=== PATIENT | female | born 1975 | race Caucasian/White ===

== ENCOUNTER 2019-04-22 18:09 | Emergency (ER) | payer BC, OTHER ==
[2019-04-22 18:19] VITALS: BP 132/72; PULSE 83; TEMP 97.4; BMI 21.7
[2019-04-22] MEDS ORDERED: PANTOPRAZOLE SODIUM 40 MG VIAL IVPUSH ONE (18:52)
[2019-04-22] MEDS ORDERED: FAMOTIDINE 20 MG/50 ML IVPB 20 MG/50 ML MG IVPB ONE ×2 (18:52→20:00)
--- NOTE | 2019-04-22 18:52 | PDOC ---
History of Present Illness - General Chief Complaint: Chest Pain Stated Complaint: CHEST PAIN, back pain Time Seen by Provider: 04/22/19 18:41 - History of Present Illness Initial Comments: 04/22/19 18:49 CHIEF COMPLAINT: chest pain HISTORY OF PRESENT ILLNESS: 43-year-old female with no past medical history presents to ED with chest pain. Patient describes the pain as a pinching that began a week ago. She states the discomfort began to worsen approximately 1 hour ago. Patient also notes that the pain worsens particularly at nighttime when lying down. She reports taking Tylenol with some relief but came in today due to worsening of her symptoms. Patient denies any recent travel, recent surgery, or use of any type of hormones. Patient denies any shortness of breath , swelling to legs, or palpitations. No recent travel or sick contacts. PAST MEDICAL HISTORY: Denies past medical history FAMILY HISTORY: father -stroke "at old age", grandfather - heart attack "in his 80s" SOCIAL HISTORY: Denies tobacco, alcohol, illicit drug use. SURGICAL HISTORY: Denies ALLERGIES: No known drug allergies REVIEW OF SYSTEMS General/Constitutional: Denies fever or chills. Denies weakness, weight change. HEENT: Denies change in vision. Denies ear pain or discharge. Denies sore throat. Cardiovascular: "Pinching "chest discomfort to left chest x1 week. Denies shortness of breath. Respiratory: Denies cough, wheezing, or hemoptysis. Gastrointestinal: Denies nausea, vomiting, diarrhea or constipation. Denies rectal bleeding. Genitourinary: Denies dysuria, frequency, or change in urination. Musculoskeletal: Denies joint or muscle swelling or pain. Denies neck or back pain. Skin and breasts: Denies rash or easy bruising. Neurologic: Denies headache, vertigo, loss of consciousness, or loss of sensation. Psychiatric: Denies depression or anxiety. PHYSICAL EXAM General Appearance: Well-appearing, appropriately dressed. No apparent distress. HEENT: EOMI, PERRLA, normal ENT inspection, normal voice, TMs normal, pharynx normal. No conjunctival pallor. No photophobia, scleral icterus. Neck: Supple. Trachea midline. No tenderness, rigidity, carotid bruit, stridor , lymphadenopathy, or thyromegaly. Respiratory/Chest: Lungs CTAB. No shortness of breath, chest tenderness, respiratory distress, accessory muscle use. No crackles, rales, rhonchi, stridor , wheezing, dullness Cardiovascular: RRR. S1, S2. No JVD, murmur, bradycardia, tachycardia. Vascular Pulses: Dorsalis-Pedis (R): 2+, Dorsalis-Pedis (L): 2+ Gastrointestinal/Abdominal: Normal bowel sounds. Abdomen soft, non-distended. No tenderness or rebound tenderness. No organomegaly, pulsatile mass, guarding , hernia, hepatomegaly, splenomegaly. Lymphatic: No adenopathy, tenderness. Musculoskeletal/Extremities: Normal inspection. FROM of all extremities, normal capillary refill. Pelvis Stable. No CVA tenderness. No tenderness to extremities, pedal edema, swelling, erythema or deformity. Integumentary: Appropriate color, dry, warm. No cyanosis, erythema, jaundice or rash Neurologic: purse framer II-XII intact. Fully oriented, alert. Appropriate mood/affect. Motor strength 5/5. No appreciable EOM palsy, facial droop or sensory deficit. 04/22/19 20:48 Past History - Past Medical History Allergies/Adverse Reactions: Allergies Allergy/AdvReac Type Severity Reaction Status Date / Time No Known Allergies Allergy Verified 04/22/19 18:20 Home Medications: Ambulatory Orders Famotidine [Pepcid] 20 mg PO DAILY #20 tablet 04/22/19 Anemia: No Asthma: No Cancer: No Cardiac Disorders: No CVA: No COPD: No CHF: No Dementia: No Diabetes: No GI Disorders: Yes (REFLUX) Disorders: No HTN: No Hypercholesterolemia: No Liver Disease: No Seizures: No Thyroid Disease: No - Surgical History Cardiac Surgery: No Cholecystectomy: No Lung Surgery: No Neurologic Surgery: No Orthopedic Surgery: No - Psycho Social/Smoking Cessation Hx Smoking History: Never smoked Information on smoking cessation initiated: No Hx Alcohol Use: No Drug/Substance Use Hx: No Substance Use Type: None Hx Substance Use Treatment: No Cardiac Specific PMH - Complaint Specific PMHX Pacemaker: No *Physical Exam - Vital Signs Last Vital Signs Temp Pulse Resp BP Pulse Ox 97.4 F L 83 17 132/72 98 04/22/19 18:17 04/22/19 18:17 04/22/19 18:17 04/22/19 18:17 04/22/19 18:17 ED Treatment Course - LABORATORY CBC & Chemistry Diagram: 04/22/19 20:00 04/22/19 20:00 - ADDITIONAL ORDERS Additional order review: 04/22/19 20:00 RBC 3.94 MCV 97.6 H MCHC 34.9 RDW 12.7 MPV 8.1 Neutrophils % 49.9 D Lymphocytes % 37.6 D Monocytes % 8.4 Eosinophils % 3.4 D Basophils % 0.7 - Medications Given in the ED: ED Medications Discontinued Medications Generic Name Dose Route Start Last Admin Trade Name Orly PRN Reason Stop Dose Admin Famotidine/Sodium Chloride 20 mg in 50 mls @ 100 mls/hr 04/22/19 18:52 20:09 Pepcid 20 Mg Premixed Ivpb - IVPB 04/22/19 19:21 100 mls/hr ONCE ONE Administration Pantoprazole Sodium 40 mg 04/22/19 18:52 04/22/19 20:09 Protonix Iv IVPUSH 04/22/19 18:53 40 mg ONCE ONE Administration Medical Decision Making - Medical Decision Making 04/22/19 20:41 43-year-old female with no past medical history presents to ED with chest pain. Exam grossly unremarkable. -labs -ekg -pepcid/protonix EKG - NSR. Patient reassessed after administration of meds. Patient states her symptoms have completely resolved and she is ready to go home at this time. Advised patient to take medication as prescribed and follow up with PCP within the next week. Advised patient of signs and symptoms for return to ED. Patient verbalized understanding and agrees to plan. Discharge - Discharge Information Problems reviewed: Yes Clinical Impression/Diagnosis: GERD (gastroesophageal reflux disease) Qualifiers: Esophagitis presence: esophagitis presence not specified Qualified Code(s): K21.9 - Gastro-esophageal reflux disease without esophagitis Condition: Stable Disposition: HOME - Admission No - Additional Discharge Information Prescriptions: Famotidine [Pepcid] 20 mg PO DAILY #20 tablet - Follow up/Referral Referrals: Chelsea Benton MD [Staff Physician] - - Patient Discharge Instructions Patient Printed Discharge Instructions: DI for Gastroesophageal Reflux Disease (GERD), GERD Diet Additional Instructions: Please take medications as prescribed. Follow-up with your primary care doctor within the next week. If you develop any new or worsening symptoms, please return to the ER. - Post Discharge Activity
--- NOTE | 2019-04-22 19:21 | PDOC ---
*Physical Exam - Vital Signs Last Vital Signs Temp Pulse Resp BP Pulse Ox 97.4 F L 83 17 132/72 98 04/22/19 18:17 04/22/19 18:17 04/22/19 18:17 04/22/19 18:17 04/22/19 18:17 ED Treatment Course - LABORATORY CBC & Chemistry Diagram: 04/22/19 20:00 04/22/19 20:00 Medical Decision Making - Medical Decision Making 04/22/19 19:20 Patient seen by the advanced practice provider under my direct supervision. Ancillary testing reviewed as necessary. I agree with plan as outlined by the advanced practice provider. Discharge - Discharge Information Problems reviewed: Yes Clinical Impression/Diagnosis: GERD (gastroesophageal reflux disease) Qualifiers: Esophagitis presence: esophagitis presence not specified Qualified Code(s): K21.9 - Gastro-esophageal reflux disease without esophagitis Condition: Stable Disposition: HOME - Additional Discharge Information Prescriptions: Famotidine [Pepcid] 20 mg PO DAILY #20 tablet - Follow up/Referral Referrals: Chelsea Benotn MD [Staff Physician] - - Patient Discharge Instructions Patient Printed Discharge Instructions: DI for Gastroesophageal Reflux Disease (GERD), GERD Diet Additional Instructions: Please take medications as prescribed. Follow-up with your primary care doctor within the next week. If you develop any new or worsening symptoms, please return to the ER. - Post Discharge Activity
[2019-04-22] MEDS ORDERED: PANTOPRAZOLE SODIUM 40 MG VIAL ONE (19:59)
[2019-04-22 20:09] LABS: BASO % 0.7 % (0-2.0); EOS % 3.4 % (0-4.5); HEMATOCRIT 38.5 % (32.4-45.2); HEMOGLOBIN 13.4 GM/dL (10.7-15.3); LYMPH % 37.6 % (8-40); MCHC 34.9 g/dl (32.0-36.0); MEAN CELL VOLUME 97.6 fl (80-96); MEAN PLT VOLUME 8.1 fl (7.5-11.1); MONO % 8.4 % (3.8-10.2); NEUT % 49.9 % (42.8-82.8); PLATELET COUNT 229 K/MM3 (134-434); RBC 3.94 M/mm3 (3.60-5.2); RDW 12.7 % (11.6-15.6); WHITE BLOOD COUNT 4.4 K/mm3 (4.0-10.0)
[2019-04-22 20:45] LABS: ALBUMIN 3.9 g/dl (3.4-5.0); ALK PHOS 63 U/L (45-117); ANION GAP 5 MMOL/L (8-16); BILIRUBIN,TOTAL 0.2 mg/dL (0.2-1); BLOOD UREA NITROGEN 10.3 mg/dL (7-18); CALCIUM 8.6 mg/dL (8.5-10.1); CHLORIDE 108 mmol/L (98-107); CO2 28 mmol/L (21-32); CREATININE 0.6 mg/dL (0.55-1.3); GLUCOSE,RANDOM 101 mg/dL (74-106); SGOT/AST 19 U/L (15-37); SGPT/ALT 26 U/L (13-61); SODIUM 141 mmol/L (136-145); TOT PROT 7.3 g/dl (6.4-8.2)
--- NOTE | 2019-04-23 12:53 | EKG ---
Test Reason : Blood Pressure : / mmHG Vent. Rate : 083 BPM Atrial Rate : 083 BPM P-R Int : 136 ms QRS Dur : 088 ms QT Int : 360 ms P-R-T Axes : 068 072 059 degrees QTc Int : 423 ms NORMAL SINUS RHYTHM NORMAL ECG NO PREVIOUS ECGS AVAILABLE Confirmed by ZAFAR HULL, ABEL ([id number]) on 04/23/2019 12:53:19 PM Referred By: Confirmed By:ABEL STEPHEN MD
== END 2019-04-22 21:17 | disposition home or self-care (01) ==
LOC: JER 18:09
PROC: 3E033GC Introduction of Other Therapeutic Substance into Peripheral Vein, Percutaneous Approach (ICD-10-PCS; principal; 2019-04-22)
PROC: 3E033GC Introduction of Other Therapeutic Substance into Peripheral Vein, Percutaneous Approach (ICD-10-PCS; 2019-04-22)
DX: K21.9 Gastro-esophageal reflux disease without esophagitis (principal)
CPT/HCPCS: 36415; 80053; 82550; 84484; 85025; 93005; 93010; 99282-25

== ENCOUNTER 2020-01-23 10:40 | Emergency (ER) | payer OTHER ==
[2020-01-23 10:54] VITALS: BP 107/74; PULSE 75; TEMP 98.3; BMI 23.4
--- OUTSIDE RECORDS SUMMARY | 2020-01-23 11:07 | XMS ---
:1975 Author Organization [facility] Care Team Providers Name Role Phone EMERGENCY SERVICE, X Unavailable Unavailable MAIRA INMAN Unavailable Unavailable Re-disclosure Warning The records that you are about to access may contain information from federally- assisted alcohol or drug abuse programs. If such information is present, then the following federally mandated warning applies: This information has been disclosed to you from records protected by federal confidentiality rules (42 CFR part 2). The federal rules prohibit you from making any further disclosure of this information unless further disclosure is expressly permitted by the written consent of the person to whom it pertains or as otherwise permitted by 42 CFR part 2. A general authorization for the release of medical or other information is NOT sufficient for this purpose. The Federal rules restrict any use of the information to criminally investigate or prosecute any alcohol or drug abuse patient.The records that you are about to access may contain highly sensitive health information, the redisclosure of which is protected by Article 27-F of the [facility] Public Health law. If you continue you may haveaccess to information: Regarding HIV / AIDS; Provided by facilities licensed or operated by the [facility] Office of Mental Health; or Provided by the [facility] Office for People With Developmental Disabilities. If such information is present, then the following [facility] mandated warning applies: This information has been disclosed to you from confidential records which are protected by state law. State law prohibits you from making any further disclosure of this information without the specific written consent of the person to whom it pertains, or as otherwise permitted by law. Any unauthorized further disclosure in violation of state law may result in a fine or nursing home sentence or both. A general authorization for the release of medical or other information is NOT sufficient authorization for further disclosure. Encounters Encounter Providers Location Date Indications Data Source(s ) Emergency Attender: STORM, 09/19/2019 BACK PAIN [facility] MAIRAAttender: 08:06:00 PM Health C are EMERGENCY SERVICE, EDT Corpor ation XAdmitter: MAIRA INMAN BACK PAIN Medications Medication Brand Start Product Dose Route Administrative Pharmacy St at Indications Reaction Description Data Name Date Form Instructions Instructions Source(s) MORphine [facility] mg UNK active [facility] Sulfate r Cou nty Sulfat 10:13: Injection 4 Heal th e Inj 59 PM mg IVP Care EDT Corporatio n Medication administered onsite Not Taking Not Taking 999 MG UNK completed N ot Taking [facility] Meds Home Meds [facility] Corporatio n Insurance Providers Payer name Policy type Policy ID Covered Covered alliance party's Policy P kimberly / Coverage alliance party ID relationship to Schaeffer Inf ormation type schaeffer TIA [id number] SP [id number] ESSENTIAL PLAN 1 2 UNK UNK UNK [facility] CARE [id number] 1 [id number] [facility] [id number] 1 [id number] PLANS PPO [id number] SP [id number] Problems, Conditions, and Diagnoses Code Display Name Description Problem Type Effective Dates Data Source(s) M79.18 MYALGIA, OTHER MYALGIA, OTHER Diagnosis 09/19/2019 [facility] SITE SITE 08:06:00 PM EDT [facility] Corporati on M54.6 Pain in PAIN IN THORACIC Diagnosis 09/19/2019 [facility] thoracic spine SPINE 08:06:00 PM EDT [facility] Corporati on Results ID Date Data Source [id number] 08/24/2019 12:00:00 AM EDT [facility] Name Value Range Interpretation Code Description Data Lizette rce(s) Supporting Document(s ) 2019-nCoV [facility] RNA XXX EMORY+probe- Imp This lab was ordered by [facility]Alcira [facility]CHOA and reported by [employer] Procedure Patient Treatment Plan of Care Planned Activity Planned Date Details Description Data Source (s) MORphine Sulfate Inj 09/19/2019 10:13:59 [facility] EDT [facility]
[2020-01-23] MEDS ORDERED: predniSONE 20 MG TABLET (UD) PO ONE (11:12)
[2020-01-23] MEDS ORDERED: predniSONE 20 MG TABLET (UD) ONE (11:15)
--- NOTE | 2020-01-23 11:19 | PDOC ---
History of Present Illness - General Chief Complaint: Rash Stated Complaint: L/EYE PROBLEM Time Seen by Provider: 01/23/20 10:55 History Source: Patient Exam Limitations: No Limitations - History of Present Illness Initial Comments: 01/23/20 11:15 44-year-old female presents to ED with complaints of itching to the left eye. Patient states symptoms began Saturday while at work. Patient denies pain but states eye was initially tearing and then began to itch and become red. Patient denies recent illness, use of creams lotions or glasses. Patient states she clean her workstation with a cleaning product and unsure if she touched her face. Otherwise no complaints. Is this a multiple visit Asthma Patient?: No Timing/Duration: other Severity: mild Associated Symptoms: reports: rash Past History - Travel History Traveled outside of the country in the last 30 days: No Close contact w/someone who was outside of country & ill: No - Medical History Allergies/Adverse Reactions: Allergies Allergy/AdvReac Type Severity Reaction Status Date / Time No Known Allergies Allergy Verified 01/23/20 10:49 Home Medications: Ambulatory Orders Lidocaine 5% Patch [Lidoderm Patch -] 1 patch TP DAILY #5 patch 09/19/19 Anemia: No Asthma: No Cancer: No Cardiac Disorders: No CVA: No COPD: No CHF: No Dementia: No Diabetes: No GI Disorders: Yes (REFLUX) Disorders: No HTN: No Hypercholesterolemia: No Liver Disease: No Seizures: No Thyroid Disease: No - Surgical History Cardiac Surgery: No Cholecystectomy: No Lung Surgery: No Neurologic Surgery: No Orthopedic Surgery: No - Reproductive History Is Patient Now?: No - Immunization History Immunization Up to Date: Yes - Psycho-Social/Smoking History Patient Lives Alone: No Lives with/in: spouse/SO Smoking History: Never smoked Have you smoked in the past 12 months: No - Substance Abuse Hx (Audit-C & DAST Scrn) How often the patient has a drink containing alcohol: Never Score: In Men: 4 or > Positive; In Women: 3 or > Positive: 0 Screen Result (Pos requires Nsg. Audit-10AR): Negative In the last yr the pt used illegal drug/Rx for NonMed reason: No Score: Yes response is considered Positive: 0 Screen Result (Positive result requires Nsg. DAST-10): Negative Review of Systems - Review of Systems Able to Perform ROS?: Yes Is the patient limited Citizen Of [place] proficient: Yes Constitutional: No: Symptoms Reported HEENTM: Yes: Tearing Respiratory: No: Symptoms reported Integumentary: Yes: Pruritus, Rash Neurological: No: Symptoms reported Endocrine: No: Symptoms Reported Hematologic/Lymphatic: No: Symptoms Reported *Physical Exam - Vital Signs Last Vital Signs Temp Pulse Resp BP Pulse Ox 98.3 F 75 16 107/74 100 01/23/20 10:49 01/23/20 10:49 01/23/20 10:49 01/23/20 10:49 01/23/20 10:49 - Physical Exam General Appearance: Yes: Nourished, Appropriately Dressed. No: Apparent Distress HEENT: positive: EOMI, JUAQUIN. negative: Pale Conjunctivae Neck: positive: Supple Integumentary: positive: Rash (Noted raised linear erythematous rash to left eyelid fold and below the lacrimal duct region) Neurologic: positive: Motor Strength 5/5 (Ambulatory) Medical Decision Making - Medical Decision Making 01/23/20 11:17 Chief complaint: Itching redness to left eye since Saturday. Exam: Patient with erythematous raised papular linear rash to left thigh region. Plan: Prednisone here discharged home with prednisone and Benadryl likely related to dermatitis Discharge - Discharge Information Problems reviewed: Yes Clinical Impression/Diagnosis: Contact dermatitis Condition: Good Disposition: HOME - Follow up/Referral Referrals: Jese Elkins MD [Primary Care Provider] - - Patient Discharge Instructions Patient Printed Discharge Instructions: DI for Contact Dermatitis Additional Instructions: Please take prednisone starting tomorrow since you were given your first dose here in the ER. May take Benadryl as needed for itching but do not take while operating heavy machinery. Do not apply topical to area for the next 3 to 4 days - Post Discharge Activity
== END 2020-01-23 11:27 | disposition home or self-care (01) ==
LOC: JERFT 10:40 → JER 10:40 → JERFT 11:27
DX: H57.812 Brow ptosis, left (principal); L23.9 Allergic contact dermatitis, unspecified cause
CPT/HCPCS: 99283-25

== ENCOUNTER 2020-03-26 11:09 | Emergency (ER) | payer OTHER ==
[2020-03-26 11:21] VITALS: BP 106/65; PULSE 84; TEMP 97.6; BMI 22.4
[2020-03-26] MEDS ORDERED: DEXAMETHASONE SOD PHOSPHATE 10 MG/1 ML VIAL IM ONE (11:49)
[2020-03-26] MEDS ORDERED: DEXAMETHASONE SOD PHOSPHATE 10 MG/1 ML VIAL ONE (12:06)
== END 2020-03-26 12:11 | disposition home or self-care (01) ==
LOC: JERFT 11:09
PROC: 3E023GC Introduction of Other Therapeutic Substance into Muscle, Percutaneous Approach (ICD-10-PCS; principal; 2020-03-26)
DX: L50.0 Allergic urticaria (principal)
CPT/HCPCS: 96372; 99283-25; J1100

== ENCOUNTER 2021-01-09 17:48 | Emergency (ER) | payer OTHER ==
[2021-01-09 17:56] VITALS: BP 113/88; PULSE 88; TEMP 98.6; BMI 22.4
== END 2021-01-09 21:57 | disposition home or self-care (01) ==
LOC: JER 17:48
DX: T58.91XA Toxic effect of carbon monoxide from unspecified source, accidental (unintentional), initial encounter (principal)
CPT/HCPCS: 82375; 99283-25

== ENCOUNTER 2024-01-13 17:44 | Emergency (ER) | payer OTHER ==
[2024-01-13 17:55] VITALS: BP 120/78; PULSE 85; RESP 20; TEMP 99; BMI 22.6
== END 2024-01-13 18:37 | disposition home or self-care (01) ==
LOC: JER 17:44
DX: K62.89 Other specified diseases of anus and rectum (principal); K64.9 Unspecified hemorrhoids
CPT/HCPCS: 99283-25

== ENCOUNTER 2024-02-27 04:32 | Day surgery (SDC) | payer OTHER ==
[2024-02-20 13:55] VITALS: BMI 23.6
[2024-02-27 09:43] VITALS: TEMP 97.3
[2024-02-27 10:00] VITALS: BP 94/65; PULSE 87; RESP 17
== END 2024-02-27 10:40 | disposition home or self-care (01) ==
LOC: JASU-ENDO 04:32
PROVIDERS: ATTEND Internal Medicine Gastroenterology
PROC: 0DB68ZX Excision of Stomach, Via Natural or Artificial Opening Endoscopic, Diagnostic (ICD-10-PCS; 2024-02-27)
PROC: 0DB78ZX Excision of Stomach, Pylorus, Via Natural or Artificial Opening Endoscopic, Diagnostic (ICD-10-PCS; 2024-02-27)
PROC: 0DJD8ZZ Inspection of Lower Intestinal Tract, Via Natural or Artificial Opening Endoscopic (ICD-10-PCS; principal; 2024-02-27 09:00)
DX: Z12.11 Encounter for screening for malignant neoplasm of colon (principal); K64.8 Other hemorrhoids; K29.50 Unspecified chronic gastritis without bleeding; Z80.0 Family history of malignant neoplasm of digestive organs; Z83.719 Family history of colon polyps, unspecified
CPT/HCPCS: 81025; 88305-TC; 88342-TC